=== PATIENT | female | born 1960 | race Caucasian/White ===

== ENCOUNTER 2018-12-12 13:57 | Emergency (ER) | payer BC ==
[2018-12-12 14:41] LABS: #Eosinphils 0.1 thou/uL (0.0-0.7); #Lymphocytes 1.2 thou/uL (1.20-3.40); #Monocytes 0.7 thou/uL (0.11-0.59); #Neutrophils 5.9 thou/uL (1.40-6.50); %Basophils 0.4 % (0.0-1.0); %Eosinophils 0.7 % (0.0-10.0); %Lymphocytes 15.7 % (21.0-51.0); %Monocytes 8.7 % (0.0-10.0); %Neutrophils 74.5 % (42.0-75.0); Hemoglobin 13.2 g/dL (12.0-16.0); Mean Corpuscular HGB CONC 32.6 g/dL (32.0-36.0); Mean Corpuscular Hemoglobin 29.8 pg (27.0-31.0); Mean Corpuscular Volume 91.4 fL (78.0-98.0); Mean Platelet Volume 8.7 fL (7.4-10.4); Platelet Count 299 thou/uL (130-400); RBC Distribution Width 11.4 % (11.5-14.5); Red Blood Cell (RBC) Count 4.42 mill/uL (4.20-5.40); White Blood Cell (WBC) Count 7.9 thou/uL (4.8-10.8)
[2018-12-12 14:57] LABS: ALT (SGPT) 45 U/L (8-55); AST (SGOT) 46 U/L (5-34); Albumin 3.8 g/dL (3.5-5.0); Alkaline Phosphatase 95 U/L (40-150); Anion Gap 16 mmol/L (10-20); BUN (Urea Nitrogen) 29 mg/dL (9.8-20.1); Bilirubin, Total 0.4 mg/dL (0.2-1.2); Calc. Creatinine Clearance 0 mL/min (70-130); Calcium 9.7 mg/dL (7.8-10.44); Carbon Dioxide 23 mmol/L (22-29); Chloride 102 mmol/L (98-107); Estimated GFR-MDRD 49; Globulin 2.9 g/dL (2.4-3.5); Glucose 101 mg/dL (70-105); Potassium 4.1 mmol/L (3.5-5.1); Protein, Total 6.7 g/dL (6.0-8.3); Sodium 137 mmol/L (136-145)
--- NOTE | 2018-12-12 15:13 | RAD ---
[place] CHEST: Date: 12/12/18 HISTORY: Syncopal episode. FINDINGS: Heart size and mediastinum are within normal limits for portable technique. Lungs are clear of any fo rosette infiltrative process. There are no significant bony findings. IMPRESSION: No active intrathoracic disease. POS: [facility]
== END 2018-12-12 17:07 | disposition home or self-care (01) ==
LOC: ERS 13:57
DX: I95.9 Hypotension, unspecified (principal); I10 Essential (primary) hypertension; E03.9 Hypothyroidism, unspecified; F32.9 Major depressive disorder, single episode, unspecified; Z79.899 Other long term (current) drug therapy
CPT/HCPCS: 36415; 71045; 80053; 84484; 85025; 93005; 96360; 96361